=== PATIENT | female | born 1990 | race Caucasian/White ===

== ENCOUNTER 2019-04-17 17:46 | Emergency (ER) | payer BC, OTHER ==
[~2019-04-17] VITALS: Ht 165.1 cm; Wt 57.2 kg
[~2019-04-17 17:46] MED LIST: ALPR0.5T PO; LEVO200T5 PO
[2019-04-17 18:16] VITALS: BP 121/78
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
[2019-04-17] MEDS ORDERED: ACETAMINOPHEN 500 MG TABLET PO ONE (19:15)
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
== END 2019-04-17 20:18 | disposition home or self-care (01) ==
LOC: ER 17:46
DX: S16.1XXA Strain of muscle, fascia and tendon at neck level, initial encounter (principal); R51 Headache; E03.9 Hypothyroidism, unspecified; F17.200 Nicotine dependence, unspecified, uncomplicated; V49.69XA Unspecified car occupant injured in collision with other motor vehicles in traffic accident, initial encounter; Y93.89 Activity, other specified; Y92.488 Other paved roadways as the place of occurrence of the external cause; Y99.8 Other external cause status
CPT/HCPCS: 72040; 99284

== ENCOUNTER 2021-02-22 09:17 | Emergency (ER) | payer BC, OTHER ==
[~2021-02-22] VITALS: Ht 165.1 cm; Wt 62.7 kg
[2021-02-22 09:29] VITALS: BP 105/75
[2021-02-22] MEDS ORDERED: AMOXICILLIN/K CLAV 875/125MG TABLET. PO ONE (09:45)
[2021-02-22] MEDS ORDERED: AMOX1TAB61 PO (09:46)
--- NOTE | 2021-02-22 09:46 | PHYS DOC ---
Past History Past Medical History: Hypothyroid Past Surgical History: , Tubal ligation Smoking: Less than 1pk/day Alcohol Use: None Drug Use: None General Adult EDM: Chief Complaint: ANIMAL BITE HPI: HPI: Patient is a 30-year-old female coming in for cat bite to her right hand on knee thenar area over the palm. Patient works at a [employer] and was reaching to get a cat out of a kennel when it bit her. Denies any other injuries. Tetanus vaccine up-to-date. Patient states that cat is rabies vaccinated. Review of Systems: Review of Systems: All other systems within normal limits except for as noted in the HPI Current Medications: Current Meds: Current Medications Medications (Trade) Dose Ordered Sig/Dede Start Time Stop Time Status Last Admin Dose Admin Amoxicillin/ Clavulanate Potassium (Augmentin 875/ 125mg) 1 tab 1X ONCE 02/22/21 09:45 02/22/21 09:46 UNV Allergies: Allergies: Allergies Coded Allergies Type Severity Reaction Last Updated Verified No Known Drug Allergies 07/02/13 No Physical Exam: PE: Constitutional: Well developed, well nourished, no acute distress, non-toxic appearance. [] HENT: Normocephalic, atraumatic, bilateral external ears normal, nose normal. [] Eyes: PERRLA, conjunctiva normal, no discharge. [] Neck: No rigidity, supple, no stridor. [] Cardiovascular: Regular rate and rhythm, brisk cap refill [] Lungs & Thorax: Non labored symmetric respirations, no tachypnea or respiratory distress [] Abdomen: Soft, nondistended. Skin: Warm, dry, no erythema, no rash. 2 puncture wounds to right hand [] Back: Unremarkable Extremities: No deformities, range of motion grossly intact, no lower extremity edema [] Neurologic: Alert and oriented X 3, no focal deficits noted. [] Psychologic: Affect normal, judgement normal, mood normal. [] Current Patient Data: Vital Signs: Vital Signs Date Time Temp Pulse Resp B/P (MAP) Pulse Ox O2 Delivery O2 Flow Rate FiO2 02/22/21 09:29 58 18 105/75 100 EKG: EKG: [] Radiology/Procedures: Radiology/Procedures: [] Heart Score: C/O Chest Pain: No Risk Factors: Risk Factors: DM, Current or recent (<one month) smoker, HTN, HLP, family history of CAD, obesity. Risk Scores: Score 0 - 3: 2.5% MACE over next 6 weeks - Discharge Home Score 4 - 6: 20.3% MACE over next 6 weeks - Admit for Clinical Observation Score 7 - 10: 72.7% MACE over next 6 weeks - Early Invasive Strategies Course & Med Decision Making: Course & Med Decision Making Pertinent Labs and Imaging studies reviewed. (See chart for details) [] Dragon Disclaimer: Dragon Disclaimer: This electronic medical record was generated, in whole or in part, using a voice recognition dictation system. Departure Departure: Impression: Primary Impression: Cat bite of hand Disposition: HOME / SELF CARE / HOMELESS Condition: STABLE Referrals: AL JULIEN MD (PCP) Patient Instructions: Animal Bite Scripts Amoxicillin/Potassium Clav (AUGMENTIN 875-125 TABLET) 1 Each Tablet 1 TAB PO BID for antibiotic for 7 Days, #14 TAB 0 Refills Prov: ROVERTO ALONZO MD 02/22/21 ROVERTO ALONZO MD Feb 22, 2021 09:46
== END 2021-02-22 09:56 | disposition home or self-care (01) ==
LOC: ER 09:17
DX: S61.431A Puncture wound without foreign body of right hand, initial encounter (principal); E03.9 Hypothyroidism, unspecified; F17.200 Nicotine dependence, unspecified, uncomplicated; W55.01XA Bitten by cat, initial encounter; Y93.89 Activity, other specified; Y92.89 Other specified places as the place of occurrence of the external cause; Y99.8 Other external cause status
CPT/HCPCS: 99283

== ENCOUNTER 2021-10-30 15:56 | Emergency (ER) | payer SELFPAY ==
[~2021-10-30] VITALS: Ht 165.1 cm; Wt 60.0 kg
[~2021-10-30 15:56] MED LIST changes: +AMOX1TAB61 PO
[2021-10-30] MEDS ORDERED: AMOX1TAB11 PO (16:13)
[2021-10-30] MEDS ORDERED: IBUPROFEN 600 MG TABLET. PO ONE ×2 (16:15→16:16)
[2021-10-30] MEDS ORDERED: NEOMY/BACITR/POLYMYXIN OINT PACKET. TP ONE ×2 (16:15→16:16)
[2021-10-30] MEDS ORDERED: AMOXICILLIN/K CLAV 875/125MG TABLET. PO ONE (16:15)
--- NOTE | 2021-10-30 16:15 | PHYS DOC ---
Past History Past Medical History: Hypothyroid Past Surgical History: , Tubal ligation Smoking: Less than 1pk/day Alcohol Use: None Drug Use: None General Adult HPI: HPI: Patient is a 31-year-old female coming in for dog bite to her left hand. 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 There is 1 deep puncture wound on the dorsum of her hand and a scrape. Last tetanus 2 years ago. The dog's vaccines are up-to-date. Review of Systems: Review of Systems: All other systems within normal limits except for as noted in the HPI Allergies: Allergies: Allergies Coded Allergies Type Severity Reaction Last Updated Verified No Known Drug Allergies 07/02/13 No Physical Exam: PE: Constitutional: Well developed, well nourished, no acute distress, non-toxic appearance. [] HENT: Normocephalic, atraumatic, bilateral external ears normal, nose normal. [] Eyes: PERRLA, conjunctiva normal, no discharge. [] Neck: No rigidity, supple, no stridor. [] Cardiovascular: Regular rate and rhythm, brisk cap refill [] Lungs & Thorax: Non labored symmetric respirations, no tachypnea or respiratory distress [] Abdomen: Soft, nondistended. Skin: Warm, dry, no erythema, no rash. Puncture wound dorsum of left hand [] Back: Unremarkable Extremities: No deformities, range of motion grossly intact, no lower extremity edema. Neurovascular intact distal to wound [] Neurologic: Alert and oriented X 3, no focal deficits noted. [] Psychologic: Affect normal, judgement normal, mood normal. [] EKG: EKG: [] Radiology/Procedures: Radiology/Procedures: [] Heart Score: C/O Chest Pain: No Risk Factors: Risk Factors: DM, Current or recent (<one month) smoker, HTN, HLP, family history of CAD, obesity. Risk Scores: Score 0 - 3: 2.5% MACE over next 6 weeks - Discharge Home Score 4 - 6: 20.3% MACE over next 6 weeks - Admit for Clinical Observation Score 7 - 10: 72.7% MACE over next 6 weeks - Early Invasive Strategies Course & Med Decision Making: Course & Med Decision Making Wound irrigated, superficial unable to visualize in depth of wound and no foreign bodies. Dragon Disclaimer: Dragon Disclaimer: This electronic medical record was generated, in whole or in part, using a voice recognition dictation system. Departure Departure: Impression: Primary Impression: Dog bite of left hand Disposition: HOME / SELF CARE / HOMELESS Condition: STABLE Referrals: AL JULIEN MD (PCP) Patient Instructions: Animal Bite Scripts Amoxicillin/Potassium Clav (AMOX TR-K CLV 875-125 MG TAB) 1 Each Tablet 1 TAB PO BID for antibiotic for 10 Days, #20 TAB Prov: ROVERTO ALONZO MD 10/30/21 ROVERTO ALONZO MD Oct 30, 2021 16:15
[2021-10-30] MEDS ORDERED: AMOXICILLIN/K CLAV 875/125MG TABLET. ONE (16:16)
[2021-10-30 16:45] VITALS: BP 111/67
== END 2021-10-30 16:52 | disposition home or self-care (01) ==
LOC: ER 15:56
DX: S61.432A Puncture wound without foreign body of left hand, initial encounter (principal); E03.9 Hypothyroidism, unspecified; F17.200 Nicotine dependence, unspecified, uncomplicated; W54.0XXA Bitten by dog, initial encounter; Y93.89 Activity, other specified; Y92.89 Other specified places as the place of occurrence of the external cause; Y99.8 Other external cause status
CPT/HCPCS: 99284